=== PATIENT | female | born 2000 | race African-American/Black ===

== ENCOUNTER 2025-01-10 17:19 | Emergency (ER) | payer OTHER, SELFPAY ==
--- NOTE | ~2025-01-10 | XR_ITS ---
HISTORY: fall, distal radius pain COMPARISON: None TECHNIQUE: 3 views of the right wrist were performed. FINDINGS: No acute fracture is identified. The carpal arcs are intact. Mild radiocarpal joint space narrowing with sclerosis of the distal radius is present. The remaining visualized joint spaces are otherwise preserved. Bone mineralization is age-appropriate. No significant soft tissue swelling is noted. No radiopaque foreign body is identified. IMPRESSION: No acute fracture, as detailed above. Reviewed, dictated and finalized at location A.
[2025-01-10 17:50] VITALS: BP 167/91; PULSE 101; RESP 16; TEMP 36.4; O2SAT 98
--- NOTE | 2025-01-10 18:18 | ED_ITS ---
HPI - Extremity Injury (Upper) General Chief Complaint: Extremity Injury, Upper <Magali Azul PA-C - Last Filed: 01/10/25 18:19> Stated Complaint: R wrist injury <Magali Azul PA-C - Last Filed: 01/10/25 18:19> Time Seen by Provider: 01/10/25 19:51 <PEDRO LUIS Nguyen Last Filed: 01/10/25 18:19> Focused HPI: 24-year-old female presents to the emergency department for right wrist pain after fall that occurred prior to arrival. Patient states she tripped over a [place] and landed on her wrist. She did not hit her head or lose consciousness. Denies other injuries acquired. He is reporting pain to the dorsum of the distal radius. GENERAL: Well-appearing, well-nourished, and in no acute distress. HEAD: Normocephalic, atraumatic. CHEST: Clear to auscultation. ?No respiratory distress. EXT: Mild tenderness to the distal radius over the dorsal aspect. No obvious deformity. Full active and passive range of motion of the wrist. No tenderness remainder of extremity. No snuffbox tenderness. Radial pulse 2 +. Cap refill less than 2. Radial, median and ulnar nerves are intact. HEART: Regular rate and rhythm.? NEURO: ?Alert and oriented x3. Patient screened in triage and initial orders placed.? ?Additional care and disposition to be based upon?diagnostic testing and treatment. <Magali Azul PA-C - Last Filed: 01/10/25 18:19> History of Present Illness HPI narrative: as per mse <Dia Galloway III, DO - Last Filed: 01/10/25 20:33> Related Data Allergies/Adverse Reactions: Allergies Allergy/AdvReac Type Severity Reaction Status Date / Time No Known Allergies Allergy Verified 01/10/25 17:55 <PEDRO LUIS Nguyen Last Filed: 01/10/25 18:19> Review of Systems Review of Systems: All systems reviewed & are unremarkable except as noted in HPI and below <Dia Galloway III, DO - Last Filed: 01/10/25 20:33> Exam Const: General: healthy appearing and no acute distress <iDa Galloway III, DO - Last Filed: 01/10/25 20:33> Nutritional Appearance: well nourished <Dia Diaz Galloway III, DO - Last Filed: 01/10/25 20:33> Orientation/consciousness: patient oriented x3 <Dia Diaz Galloway III, DO - Last Filed: 01/10/25 20:33> Limitations: no limitations <Dia Diaz Galloway III, DO - Last Filed: 01/10/25 20:33> Resp: Effort & Inspection: normal respiratory effort <Dia Diaz Galloway III, DO - Last Filed: 01/10/25 20:33> Cardio: Rate: regular rate <Dia Diaz Galloway III, DO - Last Filed: 01/10/25 20:33> Rhythm: regular rhythm <Dia Diaz Galloway III, DO - Last Filed: 01/10/25 20:33> GI: GI Palp: Yes Soft to palpation and No Tenderness to palpation present (GI) <Dia Diaz Galloway III, DO - Last Filed: 01/10/25 20:33> Auscultation: normal bowel sounds <Dia Diaz Galloway III, DO - Last Filed: 01/10/25 20:33> Skin: General skin exam: normal color <Dia Diaz Galloway III, DO - Last Filed: 01/10/25 20:33> Rashes: no rashes <Dia Diaz Galloway III, DO - Last Filed: 01/10/25 20:33> Wounds: no wounds <Dia Diaz Galloway III, DO - Last Filed: 01/10/25 20:33> Neuro: General: patient oriented x3, moves all extremities, no meningeal signs, no focal motor deficits and CN's II-XI intact bilaterally <Dia Diaz Galloway III, DO - Last Filed: 01/10/25 20:33> Speech: normal speech <Dia Diaz Galloway III, DO - Last Filed: 01/10/25 20:33> Gait exam (Neuro): Normal gait present <Dia Diaz Galloway III, DO - Last Filed: 01/10/25 20:33> Extrem: Other: tender across dorsal distal radius no swelling no snuff box tenderness <Dia Diaz Galloway III, DO - Last Filed: 01/10/25 20:33> Psych: Mental Status: mental status grossly normal <Dia Diaz Galloway III, DO - Last Filed: 01/10/25 20:33> Affect: normal affect <Dia Diaz Galloway III, DO - Last Filed: 01/10/25 20:33> Attitude: cooperative <Dia Diaz Galloway III, DO - Last Filed: 01/10/25 20:33> Course Vital Signs Vital signs: Vital Signs Temperature 97.6 F 01/10/25 17:50 Pulse Rate 101 H 01/10/25 17:50 Respiratory Rate 16 01/10/25 17:50 Blood Pressure 167/91 H 01/10/25 17:50 Pulse Oximetry 98 01/10/25 17:50 Oxygen Delivery Room Air 01/10/25 17:50 Temperature 97.6 F 01/10/25 17:50 Pulse Rate 101 H 01/10/25 17:50 Respiratory Rate 16 01/10/25 17:50 Blood Pressure 167/91 H 01/10/25 17:50 Pulse Oximetry 98 01/10/25 17:50 Oxygen Delivery Room Air 01/10/25 17:50 <Magali Azul PA-C - Last Filed: 01/10/25 18:19> Vital Signs Temperature 97.6 F 01/10/25 17:50 Pulse Rate 101 H 01/10/25 17:50 Respiratory Rate 16 01/10/25 17:50 Blood Pressure 167/91 H 01/10/25 17:50 Pulse Oximetry 98 01/10/25 17:50 Oxygen Delivery Room Air 01/10/25 17:50 Temperature 97.6 F 01/10/25 17:50 Pulse Rate 101 H 01/10/25 17:50 Respiratory Rate 16 01/10/25 17:50 Blood Pressure 167/91 H 01/10/25 17:50 Pulse Oximetry 98 01/10/25 17:50 Oxygen Delivery Room Air 01/10/25 17:50 <Dia Diaz Galloway III, DO - Last Filed: 01/10/25 20:33> MDM - Extremity Injury (Upper) MDM Narrative Medical decision making narrative: x rays reveal no fx <Dia Diaz Galloway III, DO - Last Filed: 01/10/25 20:33> Discharge Plan Discharge Clinical Impression: Sprain and strain of wrist <Magali Azul PA-C - Last Filed: 01/10/25 18:19> Patient Disposition: Home <PEDRO LUIS Nguyen Last Filed: 01/10/25 18:19> Condition: Stable <PEDRO LUIS Nguyen Last Filed: 01/10/25 18:19> Instructions: Antibiotic Form, Wrist Sprain (ED) <PEDRO LUIS Nguyen Last Filed: 01/10/25 18:19> Patient Language: Bulgarian <Magali Azul PA-C - Last Filed: 01/10/25 18:19> Follow-up/Referrals: PHYSICIAN NOT ON STAFF,NONSTAFF [Primary Care Provider] - <PEDRO LUIS Nguyen Last Filed: 01/10/25 18:19>
== END 2025-01-10 21:21 | disposition home or self-care (01) ==
LOC: ANHED 20:32
PROVIDERS: Emergency Provider Emergency Medicine
DX: S63.501A Unspecified sprain of right wrist, initial encounter (principal); W18.09XA Striking against other object with subsequent fall, initial encounter
CPT/HCPCS: 73110; 99283